=== PATIENT | female | born 1995 | race Two or more races ===

== ENCOUNTER 2021-01-29 03:58 | Inpatient (IN) | payer BC ==
[2021-01-29] VITALS (10 sets, daily range): BP systolic 81–112; BP diastolic 46–69
[~2021-01-29] VITALS: Ht 154.9 cm; Wt 54.0 kg
[2021-01-29] MEDS ORDERED: ONDANSETRON PF 4 MG/2 ML VIAL. IVP PRN (04:15)
[2021-01-29] MEDS: IV NORMAL SALINE 1000ML BAG 1,000 ML IV SCH ×4 (04:23→23:57)
[2021-01-29] MEDS: MORPHINE SULFATE 2 MG/ML VIAL. IV PRN ×2 (07:02→13:58)
--- NOTE | 2021-01-29 08:19 | PDOC2 ---
ALEJANDRINA DOMINGO DIGITAL STRATEGY DIRECTOR 01/29/21 0819: CONSULT Date of Consult Date of Consult DATE: 01/29/21 TIME: 08:15 Reason for Consult Reason for Consult: appendicitis Referring Physician Referring Physician: ER Identification/Chief Complaint Chief Complaint abdominal pain Source Source: Chart review, Patient History of Present Illness Reason for Visit: generalized abdominal pain started at 8pm, settled and seems worse at RLQ, aggravated by movement, nausea, and chills. Loose stool. no similar pain in past Past Medical History Past Medical History no medical hx Past Surgical History Past Surgical History: Other (abdominal wall lipoma removal ) Family History Family History: Other (noncontributory to current illness ) Social History No ALCOHOL: social Drugs: None Lives: with Family Current Medications Current Medications Current Medications Morphine Sulfate (Morphine Sulfate) 2 mg PRN Q2HR PRN IV PAIN Last administered on 01/29/21at 07:02; Start 01/29/21 at 04:15 Ondansetron HCl (Zofran) 4 mg PRN Q6HRS PRN IVP NAUSEA/VOMITING; Start 01/29/21 at 04:15 Sodium Chloride 1,000 ml @ 100 mls/hr Q10H IV Last administered on 01/29/21at 04:23; Start 01/29/21 at 04:15 Allergies Allergies: Coded Allergies: latex (Verified Allergy, Unknown, 01/29/21) ROS General: YES: Chills, Other (no fevers ) PSYCHOLOGICAL ROS: No: Anxiety, Depression Eyes: No Blurry vision, No Double vision HEENT: No: Heacaches, Sore Throat Hematological and Lymphatic: No: Bleeding Problems, Blood Clots Respiratory: No: Cough, Shortness of breath Cardiovascular: No Chest Pain, No Palpitations Gastrointestinal: Yes Other (see hpi) Genitourinary: No Dysuria, No Hematuria Musculoskeletal: No Joint Pain, No Muscle Pain Neurological: No Impaired Coord/balance, No Numbness/Tingling Skin: No Pruritus, No Rash Physical Exam General: Alert, Oriented X3, Cooperative HEENT: Atraumatic, PERRLA Lungs: Clear to auscultation, Normal air movement Heart: Regular rate, Normal S1, Normal S2 Abdomen: Soft, Other (moderate ttp RLQ, no gaurding ) Extremities: No clubbing, No cyanosis Skin: No rashes, No breakdown Neuro: Normal gait, Normal speech Psych/Mental Status: Mental status NL, Mood NL MUSCULOSKELETAL: No joint tenderness, No deformity Vitals VITALS Vital Signs Date Time Temp Pulse Resp B/P (MAP) Pulse Ox O2 Delivery O2 Flow Rate FiO2 01/29/21 07:02 20 100 Room Air 01/29/21 07:00 97.9 65 100/60 (73) 97.9 Labs Labs Laboratory Tests Test 01/29/21 04:45 SARS-CoV-2 Antigen (Rapid) Negative (NEGATIVE) Laboratory Tests Test 01/29/21 04:45 SARS-CoV-2 Antigen (Rapid) Negative (NEGATIVE) Images Images Ct from [facility] reviewed--acute appendicitis Assessment/Plan Assessment/Plan acute appendicitis plan lap MARINA Corley MD 01/29/21 0913: CONSULT Assessment/Plan Assessment/Plan Pt seen and examined by myself; 25 year old female who developed abdominal pain starting last night; pain was located on right side with associated nausea, vomiting, chills. She reported to the ER in [facility] and was transferred to [facility] with suspected appendicitis.; PMH/PSH/ROS/SH as above; exam: alert, oriented, comfortable, lungs clear, heart RR and R, abdomen soft, tender RLQ with palpation; Labs/xrays reviewed. A/P) Suspect appendicitis, rec to OR for laparoscopy. The details and risks of surgery were discussed with the patient. ALEJANDRINA DOMINGO APRN Jan 29, 2021 08:19 MARINA GODWIN MD Jan 29, 2021 09:13
[2021-01-29] MEDS ORDERED: HYDROmorphone 2 MG/ML VIAL IVP PRN (08:45)
[2021-01-29] MEDS ORDERED: fentaNYL PF VIAL 100 MCG/2 ML VIAL IVP PRN (08:45)
[2021-01-29] MEDS ORDERED: IV RINGERS,LACTATED 1000ML 1,000 ML IV SCH (08:45)
[2021-01-29] MEDS ORDERED: PROCHLORPERAZINE 10 MG/2 ML VIAL. IVP PRN (08:45)
[2021-01-29] MEDS ORDERED: MORPHINE SULFATE 2 MG/ML VIAL. IVP PRN (08:45)
[2021-01-29] MEDS ORDERED: LIDOCAINE 2% PF 5 ML VIAL. ONE (08:57)
[2021-01-29] MEDS ORDERED: ROCURONIUM 50 MG/5 ML VIAL. ONE (08:57)
[2021-01-29] MEDS ORDERED: PROPOFOL 10 MG/ML (20ML) VIAL. IV ONE (08:57)
[2021-01-29] MEDS ORDERED: fentaNYL PF VIAL 250 MCG/5 ML VIAL ONE (08:57)
[2021-01-29] MEDS ORDERED: SUCCINYLCHOLINE 200 MG/10 ML VIAL. ONE (08:57)
[2021-01-29] MEDS ORDERED: MIDAZOLAM HCL/PF 2 MG/2 ML VIAL. ONE (08:57)
--- NOTE | 2021-01-29 09:02 | PDOC1 ---
History and Physical Date of Admission Date of Admission DATE: 01/29/21 TIME: 09:02 Identification/Chief Complaint Chief Complaint rlq pain History of Present Illness History of Present Illness generalized abdominal pain started at 8pm, settled and seems worse at RLQ, ag gravated by movement, nausea, and chills. npo for surgery Past Medical History Cardiovascular: No pertinent hx Pulmonary: No pertinent hx Heme/Onc: No pertinent hx Hepatobiliary: No pertinent hx Psych: No pertinent hx Rheumatologic: No pertinent hx Infectious disease: No pertinent hx Renal/: No pertinent hx Past Surgical History Past Surgical History: Other (abdominal wall lipoma removal ) Family History Family History: High Cholestrol, Other (noncontributory to current illness ) Social History Smoke: No ALCOHOL: none Drugs: None Current Medications Current Medications Current Medications Morphine Sulfate (Morphine Sulfate) 2 mg PRN Q2HR PRN IV PAIN Last administered on 01/29/21at 07:02; Start 01/29/21 at 04:15 Ondansetron HCl (Zofran) 4 mg PRN Q6HRS PRN IVP NAUSEA/VOMITING; Start 01/29/21 at 04:15 Sodium Chloride 1,000 ml @ 100 mls/hr Q10H IV Last administered on 01/29/21at 04:23; Start 01/29/21 at 04:15 Fentanyl Citrate (Fentanyl 2ml Vial) 25 mcg PRN Q5MIN PRN IVP MILD PAIN 1-3; Start 01/29/21 at 08:45; Stop 01/30/21 at 08:44 Fentanyl Citrate (Fentanyl 2ml Vial) 50 mcg PRN Q5MIN PRN IVP MODERATE PAIN 4- 6; Start 01/29/21 at 08:45; Stop 01/30/21 at 08:44 Morphine Sulfate (Morphine Sulfate) 1 mg PRN Q10MIN PRN IVP SEVERE PAIN 7-10; Start 01/29/21 at 08:45; Stop 01/30/21 at 08:44 Ringer's Solution 1,000 ml @ 30 mls/hr Q24H IV ; Start 01/29/21 at 08:45; Stop 01/29/21 at 20:44 Hydromorphone HCl (Dilaudid) 0.5 mg PRN Q10MIN PRN IVP SEVERE PAIN 7-10, 2nd CHOICE; Start 01/29/21 at 08:45; Stop 01/30/21 at 08:44 Prochlorperazine Edisylate (Compazine) 5 mg PACU PRN PRN IVP NAUSEA, MRX1; Start 01/29/21 at 08:45; Stop 01/30/21 at 08:44 Lidocaine HCl (Lidocaine Pf 2% Vial) 5 ml STK-MED ONCE .ROUTE ; Start 01/29/21 at 08:57; Stop 01/29/21 at 08:57; Status DC Propofol (Diprivan) 200 mg STK-MED ONCE IV ; Start 01/29/21 at 08:57; Stop 01/29/21 at 08:57; Status DC Succinylcholine Chloride (Anectine) 200 mg STK-MED ONCE .ROUTE ; Start 01/29/21 at 08:57; Stop 01/29/21 at 08:57; Status DC Rocuronium Galloway (Zemuron) 50 mg STK-MED ONCE .ROUTE ; Start 01/29/21 at 08:57; Stop 01/29/21 at 08:57; Status DC Midazolam HCl (Versed) 2 mg STK-MED ONCE .ROUTE ; Start 01/29/21 at 08:57; Stop 01/29/21 at 08:57; Status DC Fentanyl Citrate (Fentanyl 5ml Vial) 250 mcg STK-MED ONCE .ROUTE ; Start 01/29/21 at 08:57; Stop 01/29/21 at 08:58; Status DC Allergies Allergies: Coded Allergies: latex (Verified Allergy, Unknown, 01/29/21) ROS General: No: Chills, Night Sweats, Fatigue, Malaise, Appetite, Other PSYCHOLOGICAL ROS: No: Anxiety, Behavioral Disorder, Concentration difficultie, Decreased libido, Depression, Disorientation, Hallucinations, Hostility, Irritablity, Memory difficulties, Mood Swings, Obsessive thoughts, Physical abuse, Sexual abuse, Sleep disturbances, Suicidal ideation, Other Eyes: No Blurry vision, No Decreased vision, No Double vision, No Dry eyes, No Excessive tearing, No Eye Pain, No Itchy Eyes, No Loss of vision, No Photophobia, No Scotomata, No Uses contacts, No Uses glasses, No Other HEENT: No: Heacaches, Visual Changes, Hearing change, Nasal congestion, Nasal discharge, Oral lesions, Sinus pain, Sore Throat, Epistaxis, Sneezing, Snoring, Tinnitus, Vertigo, Vocal changes, Other ALLERGY AND IMMUNOLOGY: No: Hives, Insect Bite Sensitivity, Itchy/Watery Eyes, Nasal Congestion, Post Nasal Drip, Seasonal Allergies, Other Hematological and Lymphatic: No: Bleeding Problems, Blood Clots, Blood Transfusions, Brusing, Night Sweats, Pallor, Swollen Lymph Nodes, Other ENDOCRINE: No: Breast Changes, Galactorrhea, Hair Pattern Changes, Hot Flashes, Malaise/lethargy, Mood Swings, Palpitations, Polydipsia/polyuria, Skin Changes, Temperature Intolerance, Unexpected Weight Changes, Other Breast: No New/Changing Breast Lumps, No Nipple changes, No Nipple discharge, No Other Respiratory: No: Cough, Hemoptysis, Orthopnea, Pleuritic Pain, Shortness of breath, SOB with excertion, Sputum Changes, Stridor, Tachypnea, Wheezing, Other Cardiovascular: No Chest Pain, No Palpitations, No Orthopnea, No Paroxysmal Noc. Dyspnea, No Edema, No Lt Headedness, No Other Gastrointestinal: Yes Abdominal Pain; No Nausea, No Vomiting, No Diarrhea, No Constipation, No Melena, No Hematochezia, No Other Genitourinary: No Dysuria, No Frequency, No Incontinence, No Hematuria, No Retention, No Discharge, No Urgency, No Pain, No Flank Pain, No Other, No , No , No , No , No , No , No Musculoskeletal: No Gait Disturbance, No Joint Pain, No Joint Stiffness, No J oint Swelling, No Muscle Pain, No Muscular Weakness, No Pain In:, No Swelling In:, No Other Neurological: No Behavorial Changes, No Bowel/Bladder ControlChng, No Confusion, No Dizziness, No Gait Disturbance, No Headaches, No Impaired Coord/balance, No Memory Loss, No Numbness/Tingling, No Seizures, No Speech Problems, No Tremors, No Visual Changes, No Weakness, No Other Skin: No Dry Skin, No Eczema, No Hair Changes, No Lumps, No Mole Changes, No Mottling, No Nail Changes, No Pruritus, No Rash, No Skin Lesion Changes, No Other, No Acne Physical Exam Physical Exam Physical Exam General: Alert, Oriented X3, Cooperative HEENT: Atraumatic, PERRLA Lungs: Clear to auscultation, Normal air movement Heart: Regular rate, Normal S1, Normal S2 Abdomen: Soft, Other (moderate ttp RLQ, no gaurding ) Extremities: No clubbing, No cyanosis Skin: No rashes, No breakdown Neuro: Normal gait, Normal speech Psych/Mental Status: Mental status NL, Mood NL MUSCULOSKELETAL: No joint tenderness, No deformity General: Alert, Oriented X3, Cooperative, mild distress HEENT: Atraumatic, PERRLA, EOMI, Mucous membr. moist/pink Lungs: Clear to auscultation Heart: RRR Breasts: Not examined Abdomen: Normal bowel sounds, Soft Rectal Exam: not examined Extremities: No cyanosis Neuro: Normal speech, Cranial nerves 3-12 NL Psych/Mental Status: Mental status NL, Mood NL Vitals Vitals Vital Signs Date Time Temp Pulse Resp B/P (MAP) Pulse Ox O2 Delivery O2 Flow Rate FiO2 01/29/21 08:41 98.6 83 16 101/63 100 Room Air 98.6 Labs Labs Laboratory Tests Test 01/29/21 04:45 SARS-CoV-2 Antigen (Rapid) Negative (NEGATIVE) Laboratory Tests Test 01/29/21 04:45 SARS-CoV-2 Antigen (Rapid) Negative (NEGATIVE) VTE Prophylaxis Ordered VTE Prophylaxis Devices: No VTE Pharmacological Prophylaxi: Yes Assessment/Plan Assessment/Plan Assessment/Plan Assessment/Plan acute appendicitis plan lap appy PLAN ADMIT NPO IV FLUIDS GEN SURG CONSULT dvt prophylaxis Justifications for Admission Other Justification LOUISE COX MD Jan 29, 2021 09:02
[2021-01-29] MEDS ORDERED: BUPIVACAINE-EPI 0.5%-1:200000 MPF 30 ML VIAL. ONE (10:19)
[2021-01-29] MEDS ORDERED: PHENYLEPHRINE in 0.9% NACL PF 1 MG/10 ML SYRINGE. IV ONE (10:43)
[2021-01-29] MEDS ORDERED: SEVOFLURANE 61 TO 120 MINUTES. IH ONE (10:46)
[2021-01-29] MEDS ORDERED: ONDANSETRON PF 4 MG/2 ML VIAL. ONE (10:48)
[2021-01-29] MEDS ORDERED: KETOROLAC 30 MG/ML VIAL. ONE (10:48)
[2021-01-29] MEDS ORDERED: DEXAMETHASONE SOD PHOS 4 MG/ML VIAL ONE (10:48)
[2021-01-29] MEDS ORDERED: GLYCOPYRROLATE 1 MG/5 ML VIAL. ONE (10:53)
[2021-01-29] MEDS ORDERED: NEOSTIGMINE METHYLSULFATE 5 MG/5 ML SYRINGE. ONE (10:53)
[2021-01-29] MEDS ORDERED: fentaNYL PF VIAL 100 MCG/2 ML VIAL ONE (11:45)
[2021-01-29] MEDS ORDERED: PROCHLORPERAZINE 10 MG/2 ML VIAL. ONE (11:45)
--- NOTE | 2021-01-29 11:50 | PDOC4 ---
Operative Note Operative Note Preoperative Diagnosis: Acute Appendicitis Postoperative Diagnosis: Same Procedure: Laparoscopic appendectomy Surgeon: Tito Anesthesia: Gen. EBL: 10 mL Specimen: Appendix to pathology Drains: None Complications: None Indication: The patient is a 25-year-old female who reported to the emergency department with abdominal pain. The evaluation is consistent with acute appendicitis. The patient was offered surgical treatment with a laparoscopic appendectomy. The risks of surgery were discussed which include bleeding, infection, visceral injury, pain, anesthetic risk, potential need for additional surgery or procedure. The patient understands and would like to proceed. Description: The patient was taken to the operating room and placed supine on the operating table. Gen. anesthesia was performed. The abdomen was prepped with ChloraPrep and draped in a standard surgical manner. A supraumbilical incision was made through which a veress needle was inserted and a pneumoperitoneum was created. A visualized 5 mm trocar was inserted and the laparoscope was intr oduced. In the left lower quadrant a 5 mm trocar was inserted. In the suprapubic region a 12 mm trocar was inserted. There was an adhesion to a loop of small bowel which was taken down with scissors. There was a slight possible serosal disruption on a loop of small bowel where the adhesion was attached. This was oversewn with 3-0 Vicryl. The appendix was identified and appeared enlarged and mildly thickened possibly consistent with early acute appendicitis. There was no clear evidence of perforation or periappendiceal abscess. The mesoappendix was bluntly from the appendix. The mesoappendix was controlled using several clips and it was divided. The appendix was then amputated off the cecum using an Endo BRITTANY 45 stapling device. The appendix was then placed in an endoscopic bag and extracted at the suprapubic incision site. The fascia there was closed with 0 Vicryl and infiltrated with half percent Marcaine with epinephrine. The RLQ was visualized and the staple line appeared well intact and hemostasis was good. No other abnormalities were identified grossly. The remaining ports were removed and the pneumoperitoneum was relieved. The skin at all incision sites was closed with 4-0 Monocryl. Steri-Strips and dressings were applied. The patient tolerated the procedure well and was sent to the recovery room in stable condition. At the end of the case all counts were correct. MARINA GODWIN MD Jan 29, 2021 11:50
[2021-01-29] MEDS ORDERED: oxyCODONE/APAP 5/325 1 TAB TABLET PO PRN (12:00)
[2021-01-29] MEDS: fentaNYL PF VIAL 100 MCG/2 ML VIAL IVP PRN ×2 (12:05→13:01)
[2021-01-29] MEDS ORDERED: DOCUSATE SODIUM 100 MG CAPSULE. PO PRN (13:45)
[2021-01-29] MEDS ORDERED: 0.9 % SODIUM CHLORIDE 10 ML DISP.SYRIN. IV PRN (13:45)
[2021-01-29] MEDS ORDERED: ALBUTEROL SULFATE 2.5 MG/3 ML NEBU. NEB PRN (13:45)
[2021-01-29] MEDS ORDERED: SODIUM PHOSPHATES 19/7GM 133 ML ENEMA. PR PRN (13:45)
[2021-01-29] MEDS ORDERED: guaiFENesin ORAL 200 MG/10 ML LIQUID. PO PRN (13:45)
[2021-01-29] MEDS ORDERED: ACETAMINOPHEN 325 MG TABLET. PO PRN (13:45)
[2021-01-29] MEDS ORDERED: ONDANSETRON PF 4 MG/2 ML VIAL. IV PRN (13:45)
[2021-01-29] MEDS ORDERED: ZOLPIDEM 5 MG TABLET. PO PRN (13:45)
[2021-01-29 14:32] LABS: CALCIUM 7.2 mg/dL (8.5-10.1); CREATININE 0.5 mg/dL (0.6-1.0); GFR 152.9; POTASSIUM 3.6 mmol/L (3.5-5.1)
[2021-01-29] MEDS: oxyCODONE/APAP 5/325 1 TAB TABLET PO PRN ×2 (19:46→23:54)
[2021-01-29] MEDS ORDERED: ENOXAPARIN 40 MG/0.4 ML SYRINGE. SQ SCH (21:00)
[2021-01-30] VITALS: BP 99/61
[2021-01-30] MEDS: IV NORMAL SALINE 1000ML BAG 1,000 ML IV SCH ×3 (02:56→10:15)
[2021-01-30 03:00] VITALS: BP 95/54
[2021-01-30 06:10] LABS: BASO % 0 % (0-3); EOS % 0 % (0-3); HEMATOCRIT 36.6 % (36.0-47.0); LYMPH # 1.5 x10^3/uL (1.0-4.8); LYMPH % 23 % (24-48); MEAN CORPUSCULAR HEMOGLOBIN 27 pg (25-35); MEAN CORPUSCULAR HGB CONC 33 g/dL (31-37); MEAN CORPUSCULAR VOLUME 82 fL (79-100); MONO # 0.4 x10^3/uL (0.0-1.1); MONO % 7 % (0-9); NEUT # 4.7 x10^3/uL (1.8-7.7); NEUT % 71 % (31-73); PLATELET COUNT 211 x10^3/uL (140-400); RED BLOOD COUNT 4.46 x10^6/uL (3.50-5.40); RED CELL DISTRIBUTION WIDTH 14.3 % (11.5-14.5); WHITE BLOOD COUNT 6.7 x10^3/uL (4.0-11.0)
[2021-01-30 07:00] VITALS: BP 102/63
[2021-01-30] MEDS: oxyCODONE/APAP 5/325 1 TAB TABLET PO PRN (07:04)
--- NOTE | 2021-01-30 08:57 | PDOC ---
PROGRESS NOTES Date of Service: DATE: 01/30/21 TIME: 08:57 Chief Complaint Chief Complaint Assessment/Plan Assessment/Plan acute appendicitis plan lap appy CHRISTOS WE[facility] PLAN ADMIT ADAT IV FLUIDS GEN SURG CONSULT dvt prophylaxis - IMPROVED, ON CLEARS D/W RN Justifications for Admission Justifications for Admission Other Justification History of Present Illness History of Present Illness History of Present Illness History of Present Illness generalized abdominal pain started at 8pm, settled and seems worse at RLQ, aggravated by movement, nausea, and chills. npo for surgery Past Medical History Cardiovascular: No pertinent hx Pulmonary: No pertinent hx Heme/Onc: No pertinent hx Hepatobiliary: No pertinent hx Psych: No pertinent hx Rheumatologic: No pertinent hx Infectious disease: No pertinent hx Renal/: No pertinent hx Past Surgical History Past Surgical History: Other (abdominal wall lipoma removal ) Family History Family History: High Cholestrol, Other (noncontributory to current illness ) Social History Smoke: No ALCOHOL: none Drugs: None Current Medications Current Medications Current Medications Morphine Sulfate (Morphine Sulfate) 2 mg PRN Q2HR PRN IV PAIN Last administered on 01/29/21at 07:02; Start 01/29/21 at 04:15 Ondansetron HCl (Zofran) 4 mg PRN Q6HRS PRN IVP NAUSEA/VOMITING; Start 01/29/21 at 04:15 Sodium Chloride 1,000 ml @ 100 mls/hr Q10H IV Last administered on 01/29/21at 04:23; Start 01/29/21 at 04:15 Fentanyl Citrate (Fentanyl 2ml Vial) 25 mcg PRN Q5MIN PRN IVP MILD PAIN 1-3; Start 01/29/21 at 08:45; Stop 01/30/21 at 08:44 Fentanyl Citrate (Fentanyl 2ml Vial) 50 mcg PRN Q5MIN PRN IVP MODERATE PAIN 4- 6; Start 01/29/21 at 08:45; Stop 01/30/21 at 08:44 Morphine Sulfate (Morphine Sulfate) 1 mg PRN Q10MIN PRN IVP SEVERE PAIN 7-10; Start 01/29/21 at 08:45; Stop 01/30/21 at 08:44 Ringer's Solution 1,000 ml @ 30 mls/hr Q24H IV ; Start 01/29/21 at 08:45; Stop 01/29/21 at 20:44 Hydromorphone HCl (Dilaudid) 0.5 mg PRN Q10MIN PRN IVP SEVERE PAIN 7-10, 2nd CHOICE; Start 01/29/21 at 08:45; Stop 01/30/21 at 08:44 Prochlorperazine Edisylate (Compazine) 5 mg PACU PRN PRN IVP NAUSEA, MRX1; Start 01/29/21 at 08:45; Stop 01/30/21 at 08:44 Lidocaine HCl (Lidocaine Pf 2% Vial) 5 ml STK-MED ONCE .ROUTE ; Start 01/29/21 at 08:57; Stop 01/29/21 at 08:57; Status DC Propofol (Diprivan) 200 mg STK-MED ONCE IV ; Start 01/29/21 at 08:57; Stop 01/29/21 at 08:57; Status DC Succinylcholine Chloride (Anectine) 200 mg STK-MED ONCE .ROUTE ; Start 01/29/21 at 08:57; Stop 01/29/21 at 08:57; Status DC Rocuronium [place] (Zemuron) 50 mg STK-MED ONCE .ROUTE ; Start 01/29/21 at 08:57; Stop 01/29/21 at 08:57; Status DC Midazolam HCl (Versed) 2 mg STK-MED ONCE .ROUTE ; Start 01/29/21 at 08:57; Stop 01/29/21 at 08:57; Status DC Fentanyl Citrate (Fentanyl 5ml Vial) 250 mcg STK-MED ONCE .ROUTE ; Start 01/29/21 at 08:57; Stop 01/29/21 at 08:58; Status DC Allergies Allergies: Coded Allergies: latex (Verified Allergy, Unknown, 01/29/21) ROS General: No: Chills, Night Sweats, Fatigue, Malaise, Appetite, Other PSYCHOLOGICAL ROS: No: Anxiety, Behavioral Disorder, Concentration difficultie, Decreased libido, Depression, Disorientation, Hallucinations, Hostility, Irritablity, Memory difficulties, Mood Swings, Obsessive thoughts, Physical abuse, Sexual abuse, Sleep disturbances, Suicidal ideation, Other Eyes: No Blurry vision, No Decreased vision, No Double vision, No Dry eyes, No Excessive tearing, No Eye Pain, No Itchy Eyes, No Loss of vision, No Photopho daniel, No Scotomata, No Uses contacts, No Uses glasses, No Other HEENT: No: Heacaches, Visual Changes, Hearing change, Nasal congestion, Nasal discharge, Oral lesions, Sinus pain, Sore Throat, Epistaxis, Sneezing, Snoring, Tinnitus, Vertigo, Vocal changes, Other ALLERGY AND IMMUNOLOGY: No: Hives, Insect Bite Sensitivity, Itchy/Watery Eyes, Nasal Congestion, Post Nasal Drip, Seasonal Allergies, Other Hematological and Lymphatic: No: Bleeding Problems, Blood Clots, Blood Transfusions, Brusing, Night Sweats, Pallor, Swollen Lymph Nodes, Other ENDOCRINE: No: Breast Changes, Galactorrhea, Hair Pattern Changes, Hot Flashes, Malaise/lethargy, Mood Swings, Palpitations, Polydipsia/polyuria, Skin Changes, Temperature Intolerance, Unexpected Weight Changes, Other Breast: No New/Changing Breast Lumps, No Nipple changes, No Nipple discharge, No Other Respiratory: No: Cough, Hemoptysis, Orthopnea, Pleuritic Pain, Shortness of breath, SOB with excertion, Sputum Changes, Stridor, Tachypnea, Wheezing, Other Cardiovascular: No Chest Pain, No Palpitations, No Orthopnea, No Paroxysmal Noc. Dyspnea, No Edema, No Lt Headedness, No Other Gastrointestinal: Yes Abdominal Pain; No Nausea, No Vomiting, No Diarrhea, No Constipation, No Melena, No Hematochezia, No Other Genitourinary: No Dysuria, No Frequency, No Incontinence, No Hematuria, No Retention, No Discharge, No Urgency, No Pain, No Flank Pain, No Other, No , No , No , No , No , No , No Musculoskeletal: No Gait Disturbance, No Joint Pain, No Joint Stiffness, No Joint Swelling, No Muscle Pain, No Muscular Weakness, No Pain In:, No Swelling In:, No Other Neurological: No Behavorial Changes, No Bowel/Bladder ControlChng, No Confusion, No Dizziness, No Gait Disturbance, No Headaches, No Impaired Coord/balance, No Memory Loss, No Numbness/Tingling, No Seizures, No Speech Problems, No Tremors, No Visual Changes, No Weakness, No Other Skin: No Dry Skin, No Eczema, No Hair Changes, No Lumps, No Mole Changes, No Mottling, No Nail Changes, No Pruritus, No Rash, No Skin Lesion Changes, No Other, No Acne Vitals Vitals Vital Signs Date Time Temp Pulse Resp B/P (MAP) Pulse Ox O2 Delivery O2 Flow Rate FiO2 01/30/21 08:06 Room Air 01/30/21 07:04 20 100 10.0 01/30/21 07:00 97.7 66 102/63 (76) 97.7 Physical Exam General: Alert, Oriented X3, Cooperative, No acute distress Heart: Regular rate, Normal S1, Normal S2 Lungs: Clear Abdomen: Normal bowel sounds, Soft Extremities: No clubbing, No cyanosis Skin: No rashes, No breakdown Labs LABS Laboratory Tests Test 01/29/21 14:00 01/30/21 05:20 Sodium Level 139 mmol/L (136-145) Potassium Level 3.6 mmol/L (3.5-5.1) Chloride Level 107 mmol/L (98-107) Carbon Dioxide Level 23 mmol/L (21-32) Anion Gap 9 (6-14) Blood Urea Nitrogen 5 mg/dL (7-20) Creatinine 0.5 mg/dL (0.6-1.0) Estimated GFR (Cockcroft-Gault) 152.9 Glucose Level 94 mg/dL (70-99) Calcium Level 7.2 mg/dL (8.5-10.1) White Blood Count 6.7 x10^3/uL (4.0-11.0) Red Blood Count 4.46 x10^6/uL (3.50-5.40) Hemoglobin 12.0 g/dL (12.0-15.5) Hematocrit 36.6 % (36.0-47.0) Mean Corpuscular Volume 82 fL (79-100) Mean Corpuscular Hemoglobin 27 pg (25-35) Mean Corpuscular Hemoglobin Concent 33 g/dL (31-37) Red Cell Distribution Width 14.3 % (11.5-14.5) Platelet Count 211 x10^3/uL (140-400) Neutrophils (%) (Auto) 71 % (31-73) Lymphocytes (%) (Auto) 23 % (24-48) Monocytes (%) (Auto) 7 % (0-9) Eosinophils (%) (Auto) 0 % (0-3) Basophils (%) (Auto) 0 % (0-3) Neutrophils # (Auto) 4.7 x10^3/uL (1.8-7.7) Lymphocytes # (Auto) 1.5 x10^3/uL (1.0-4.8) Monocytes # (Auto) 0.4 x10^3/uL (0.0-1.1) Eosinophils # (Auto) 0.0 x10^3/uL (0.0-0.7) Basophils # (Auto) 0.0 x10^3/uL (0.0-0.2) Comment Review of Relevant I have reviewed the following items juliocesar (where applicable) has been applied. Labs Laboratory Tests Test 01/29/21 04:45 01/29/21 14:00 01/30/21 05:20 Coronavirus (PCR) Not detected (Not Detected) SARS-CoV-2 Antigen (Rapid) Negative (NEGATIVE) Sodium Level 139 mmol/L (136-145) Potassium Level 3.6 mmol/L (3.5-5.1) Chloride Level 107 mmol/L (98-107) Carbon Dioxide Level 23 mmol/L (21-32) Anion Gap 9 (6-14) Blood Urea Nitrogen 5 mg/dL (7-20) Creatinine 0.5 mg/dL (0.6-1.0) Estimated GFR (Cockcroft-Gault) 152.9 Glucose Level 94 mg/dL (70-99) Calcium Level 7.2 mg/dL (8.5-10.1) White Blood Count 6.7 x10^3/uL (4.0-11.0) Red Blood Count 4.46 x10^6/uL (3.50-5.40) Hemoglobin 12.0 g/dL (12.0-15.5) Hematocrit 36.6 % (36.0-47.0) Mean Corpuscular Volume 82 fL (79-100) Mean Corpuscular Hemoglobin 27 pg (25-35) Mean Corpuscular Hemoglobin Concent 33 g/dL (31-37) Red Cell Distribution Width 14.3 % (11.5-14.5) Platelet Count 211 x10^3/uL (140-400) Neutrophils (%) (Auto) 71 % (31-73) Lymphocytes (%) (Auto) 23 % (24-48) Monocytes (%) (Auto) 7 % (0-9) Eosinophils (%) (Auto) 0 % (0-3) Basophils (%) (Auto) 0 % (0-3) Neutrophils # (Auto) 4.7 x10^3/uL (1.8-7.7) Lymphocytes # (Auto) 1.5 x10^3/uL (1.0-4.8) Monocytes # (Auto) 0.4 x10^3/uL (0.0-1.1) Eosinophils # (Auto) 0.0 x10^3/uL (0.0-0.7) Basophils # (Auto) 0.0 x10^3/uL (0.0-0.2) Laboratory Tests Test 01/29/21 14:00 01/30/21 05:20 Sodium Level 139 mmol/L (136-145) Potassium Level 3.6 mmol/L (3.5-5.1) Chloride Level 107 mmol/L (98-107) Carbon Dioxide Level 23 mmol/L (21-32) Anion Gap 9 (6-14) Blood Urea Nitrogen 5 mg/dL (7-20) Creatinine 0.5 mg/dL (0.6-1.0) Estimated GFR (Cockcroft-Gault) 152.9 Glucose Level 94 mg/dL (70-99) Calcium Level 7.2 mg/dL (8.5-10.1) White Blood Count 6.7 x10^3/uL (4.0-11.0) Red Blood Count 4.46 x10^6/uL (3.50-5.40) Hemoglobin 12.0 g/dL (12.0-15.5) Hematocrit 36.6 % (36.0-47.0) Mean Corpuscular Volume 82 fL (79-100) Mean Corpuscular Hemoglobin 27 pg (25-35) Mean Corpuscular Hemoglobin Concent 33 g/dL (31-37) Red Cell Distribution Width 14.3 % (11.5-14.5) Platelet Count 211 x10^3/uL (140-400) Neutrophils (%) (Auto) 71 % (31-73) Lymphocytes (%) (Auto) 23 % (24-48) Monocytes (%) (Auto) 7 % (0-9) Eosinophils (%) (Auto) 0 % (0-3) Basophils (%) (Auto) 0 % (0-3) Neutrophils # (Auto) 4.7 x10^3/uL (1.8-7.7) Lymphocytes # (Auto) 1.5 x10^3/uL (1.0-4.8) Monocytes # (Auto) 0.4 x10^3/uL (0.0-1.1) Eosinophils # (Auto) 0.0 x10^3/uL (0.0-0.7) Basophils # (Auto) 0.0 x10^3/uL (0.0-0.2) Medications Current Medications Morphine Sulfate (Morphine Sulfate) 2 mg PRN Q2HR PRN IV PAIN Last administered on 01/29/21at 13:58; Start 01/29/21 at 04:15 Ondansetron HCl (Zofran) 4 mg PRN Q6HRS PRN IVP NAUSEA/VOMITING; Start 01/29/21 at 04:15; Stop 01/29/21 at 14:25; Status DC Sodium Chloride 1,000 ml @ 100 mls/hr Q10H IV Last administered on 01/30/21at 02:56; Start 01/29/21 at 04:15 Fentanyl Citrate (Fentanyl 2ml Vial) 25 mcg PRN Q5MIN PRN IVP MILD PAIN 1-3; Start 01/29/21 at 08:45; Stop 01/30/21 at 08:44; Status DC Fentanyl Citrate (Fentanyl 2ml Vial) 50 mcg PRN Q5MIN PRN IVP MODERATE PAIN 4-6 Last administered on 01/29/21at 13:01; Start 01/29/21 at 08:45; Stop 01/30/21 at 08:44; Status DC Morphine Sulfate (Morphine Sulfate) 1 mg PRN Q10MIN PRN IVP SEVERE PAIN 7-10; Start 01/29/21 at 08:45; Stop 01/30/21 at 08:44; Status DC Ringer's Solution 1,000 ml @ 30 mls/hr Q24H IV ; Start 01/29/21 at 08:45; Stop 01/29/21 at 20:44; Status DC Hydromorphone HCl (Dilaudid) 0.5 mg PRN Q10MIN PRN IVP SEVERE PAIN 7-10, 2nd CHOICE; Start 01/29/21 at 08:45; Stop 01/30/21 at 08:44; Status DC Prochlorperazine Edisylate (Compazine) 5 mg PACU PRN PRN IVP NAUSEA, MRX1 Last administered on 01/29/21at 12:04; Start 01/29/21 at 08:45; Stop 01/30/21 at 08:44; Status DC Lidocaine HCl (Lidocaine Pf 2% Vial) 5 ml STK-MED ONCE .ROUTE ; Start 01/29/21 at 08:57; Stop 01/29/21 at 08:57; Status DC Propofol (Diprivan) 200 mg STK-MED ONCE IV ; Start 01/29/21 at 08:57; Stop 01/29/21 at 08:57; Status DC Succinylcholine Chloride (Anectine) 200 mg STK-MED ONCE .ROUTE ; Start 01/29/21 at 08:57; Stop 01/29/21 at 08:57; Status DC Rocuronium [place] (Zemuron) 50 mg STK-MED ONCE .ROUTE ; Start 01/29/21 at 08:57; Stop 01/29/21 at 08:57; Status DC Midazolam HCl (Versed) 2 mg STK-MED ONCE .ROUTE ; Start 01/29/21 at 08:57; Stop 01/29/21 at 08:57; Status DC Fentanyl Citrate (Fentanyl 5ml Vial) 250 mcg STK-MED ONCE .ROUTE ; Start 01/29/21 at 08:57; Stop 01/29/21 at 08:58; Status DC Bupivacaine HCl/ Epinephrine Bitart (Sensorcain-Epi 0.5%-1:300867 Mpf) 30 ml STK-MED ONCE .ROUTE Last administered on 01/29/21at 10:50; Start 01/29/21 at 10:19; Stop 01/29/21 at 10:20; Status DC Phenylephrine HCl (PHENYLEPHRINE in 0.9% NACL PF) 1 mg STK-MED ONCE IV ; Start 01/29/21 at 10:43; Stop 01/29/21 at 10:43; Status DC Sevoflurane (Ultane) 60 ml STK-MED ONCE IH ; Start 01/29/21 at 10:46; Stop 01/29/21 at 10:46; Status DC Ketorolac Tromethamine (Toradol 30mg Vial) 30 mg STK-MED ONCE .ROUTE ; Start 01/29/21 at 10:48; Stop 01/29/21 at 10:48; Status DC Ondansetron HCl (Zofran) 4 mg STK-MED ONCE .ROUTE ; Start 01/29/21 at 10:48; Stop 01/29/21 at 10:48; Status DC Dexamethasone Sodium Phosphate (Decadron) 4 mg STK-MED ONCE .ROUTE ; Start 01/29/21 at 10:48; Stop 01/29/21 at 10:48; Status DC Neostigmine [place] (Neostigmine Methylsulfate) 5 mg STK-MED ONCE .ROUTE ; Start 01/29/21 at 10:53; Stop 01/29/21 at 10:53; Status DC Glycopyrrolate (Robinul) 1 mg STK-MED ONCE .ROUTE ; Start 01/29/21 at 10:53; Stop 01/29/21 at 10:54; Status DC Fentanyl Citrate (Fentanyl 2ml Vial) 100 mcg STK-MED ONCE .ROUTE ; Start 01/29/21 at 11:45; Stop 01/29/21 at 11:45; Status DC Prochlorperazine Edisylate (Compazine) 10 mg STK-MED ONCE .ROUTE ; Start 01/29/21 at 11:45; Stop 01/29/21 at 11:45; Status DC Oxycodone/ Acetaminophen (Percocet 5/325) 1 tab PRN Q4HRS PRN PO MODERATE PAIN Last administered on 01/30/21at 07:04; Start 01/29/21 at 12:00 Oxycodone/ Acetaminophen (Percocet 5/325) 2 tab PRN Q4HRS PRN PO SEVERE PAIN; Start 01/29/21 at 12:00 Sodium Chloride (Normal Saline Flush) 3 ml QSHIFT PRN IV AFTER MEDS AND BLOOD DRAWS; Start 01/29/21 at 13:45 Sodium Chloride 1,000 ml @ 100 mls/hr Q10H IV Last administered on 01/29/21at 23:57; Start 01/29/21 at 13:45 Ondansetron HCl (Zofran) 4 mg PRN Q4HRS PRN IV NAUSEA/VOMITING Last administered on 01/29/21at 18:45; Start 01/29/21 at 13:45 Zolpidem Tartrate (Ambien) 5 mg PRN QHS PRN PO INSOMNIA; Start 01/29/21 at 13:45 Acetaminophen (Tylenol) 650 mg PRN Q4HRS PRN PO TEMP OVER 100.4F OR MILD PAIN; Start 01/29/21 at 13:45 Sodium Monofluorophosphate (Fleet Adult) 133 ml PRN DAILY PRN [place] CONSTIPATION; Start 01/29/21 at 13:45 Docusate Sodium (Colace) 100 mg PRN BID PRN PO HARD STOOLS; Start 01/29/21 at 13:45 Albuterol Sulfate (Ventolin Neb Soln) 2.5 mg PRN Q4HRS PRN NEB SHORTNESS OF BREATH; Start 01/29/21 at 13:45 Guaifenesin (Robitussin) 200 mg PRN Q4HRS PRN PO COUGH; Start 01/29/21 at 13:45 Enoxaparin Sodium (Lovenox 40mg Syringe) 40 mg Q24H SQ ; Start 01/29/21 at 21:00; Stop 01/30/21 at 00:45; Status DC Enoxaparin Sodium (Lovenox 40mg Syringe) 40 mg Q24H SQ Last administered on 01/30/21at 08:04; Start 01/30/21 at 09:00 Vitals/I & O Vital Sign - Last 24 Hours 01/29/21 01/29/21 01/29/21 01/29/21 11:00 11:46 11:46 12:01 Temp 97.1 97.1 97.1 97.1 Pulse 86 84 Resp 15 15 B/P (MAP) () 86/36 92/44 Pulse Ox 100 100 O2 Delivery Room Air Room Air Room Air O2 Flow Rate 10 01/29/21 01/29/21 01/29/21 01/29/21 12:05 12:16 12:31 12:46 Temp 97.1 97.1 97.1 97.1 97.1 97.1 Pulse 88 91 88 Resp 15 15 15 15 B/P (MAP) 98/50 96/49 94/45 Pulse Ox 100 99 99 99 O2 Delivery Room Air Room Air Room Air Room Air O2 Flow Rate 10.0 01/29/21 01/29/21 01/29/21 01/29/21 13:01 13:15 13:30 13:58 Temp 98.7 98.7 Pulse 97 96 Resp 15 16 16 B/P (MAP) 104/55 (71) 112/57 (75) Pulse Ox 100 95 96 O2 Delivery Room Air Room Air Room Air Room Air O2 Flow Rate 10.0 01/29/21 01/29/21 01/29/21 01/29/21 14:00 14:28 14:30 14:55 Pulse 96 101 107 Resp 16 16 17 18 B/P (MAP) 112/69 (83) 92/56 (68) 106/67 (80) Pulse Ox 98 97 95 O2 Delivery Room Air Room Air Room Air 01/29/21 01/29/21 01/29/21 01/29/21 15:50 19:00 19:46 20:00 Temp 98.2 98.2 Pulse 61 95 Resp 16 20 B/P (MAP) 81/46 (58) 104/55 (71) Pulse Ox 100 95 O2 Delivery Room Air Room Air Room Air 01/29/21 01/29/21 01/30/21 01/30/21 20:46 23:54 00:00 00:54 Temp 97.7 97.7 Pulse 91 Resp 20 20 16 20 B/P (MAP) 99/61 (74) Pulse Ox 100 95 100 100 O2 Delivery Room Air Room Air Room Air Room Air 01/30/21 01/30/21 01/30/21 01/30/21 03:00 07:00 07:04 08:06 Temp 97.8 97.7 97.8 97.7 Pulse 89 66 Resp 16 18 20 B/P (MAP) 95/54 (68) 102/63 (76) Pulse Ox 100 94 100 O2 Delivery Room Air Room Air Room Air Room Air O2 Flow Rate 10.0 Intake and Output 01/29/21 01/29/21 01/30/21 15:00 23:00 07:00 Intake Total 1000 ml 1200 ml Output Total 410 ml 500 ml 300 ml Balance 590 ml 700 ml -300 ml Justicifation of Admission Dx: Justifications for Admission: Justification of Admission Dx: Yes Comments: ACUTE APPENDICITIS LOUISE COX MD Jan 30, 2021 08:57
[2021-01-30] MEDS ORDERED: ENOXAPARIN 40 MG/0.4 ML SYRINGE. SQ SCH (09:00)
--- NOTE | 2021-01-30 09:39 | PDOC ---
SURGICAL PROGRESS NOTE DATE: 01/30/21 TIME: 09:38 Subjective overall feels much better than preop no nausea urinating Vital Signs Vital Signs Date Time Temp Pulse Resp B/P (MAP) Pulse Ox O2 Delivery O2 Flow Rate FiO2 01/30/21 08:06 Room Air 01/30/21 07:04 20 100 10.0 01/30/21 07:00 97.7 66 102/63 (76) 97.7 I&O Intake and Output 01/30/21 07:00 Intake Total 2200 ml Output Total 1210 ml Balance 990 ml IV Total 1000 ml Other 1200 ml Output Urine Total 1200 ml Estimated Blood Loss 10 ml # Voids 1 General: Alert, Oriented X3, Cooperative Abdomen: Soft, Other (lap dressings dry) Labs Laboratory Tests Test 01/29/21 04:45 01/29/21 14:00 01/30/21 05:20 Coronavirus (PCR) Not detected (Not Detected) SARS-CoV-2 Antigen (Rapid) Negative (NEGATIVE) Sodium Level 139 mmol/L (136-145) Potassium Level 3.6 mmol/L (3.5-5.1) Chloride Level 107 mmol/L (98-107) Carbon Dioxide Level 23 mmol/L (21-32) Anion Gap 9 (6-14) Blood Urea Nitrogen 5 mg/dL (7-20) Creatinine 0.5 mg/dL (0.6-1.0) Estimated GFR (Cockcroft-Gault) 152.9 Glucose Level 94 mg/dL (70-99) Calcium Level 7.2 mg/dL (8.5-10.1) White Blood Count 6.7 x10^3/uL (4.0-11.0) Red Blood Count 4.46 x10^6/uL (3.50-5.40) Hemoglobin 12.0 g/dL (12.0-15.5) Hematocrit 36.6 % (36.0-47.0) Mean Corpuscular Volume 82 fL (79-100) Mean Corpuscular Hemoglobin 27 pg (25-35) Mean Corpuscular Hemoglobin Concent 33 g/dL (31-37) Red Cell Distribution Width 14.3 % (11.5-14.5) Platelet Count 211 x10^3/uL (140-400) Neutrophils (%) (Auto) 71 % (31-73) Lymphocytes (%) (Auto) 23 % (24-48) Monocytes (%) (Auto) 7 % (0-9) Eosinophils (%) (Auto) 0 % (0-3) Basophils (%) (Auto) 0 % (0-3) Neutrophils # (Auto) 4.7 x10^3/uL (1.8-7.7) Lymphocytes # (Auto) 1.5 x10^3/uL (1.0-4.8) Monocytes # (Auto) 0.4 x10^3/uL (0.0-1.1) Eosinophils # (Auto) 0.0 x10^3/uL (0.0-0.7) Basophils # (Auto) 0.0 x10^3/uL (0.0-0.2) Laboratory Tests Test 01/29/21 14:00 01/30/21 05:20 Sodium Level 139 mmol/L (136-145) Potassium Level 3.6 mmol/L (3.5-5.1) Chloride Level 107 mmol/L (98-107) Carbon Dioxide Level 23 mmol/L (21-32) Anion Gap 9 (6-14) Blood Urea Nitrogen 5 mg/dL (7-20) Creatinine 0.5 mg/dL (0.6-1.0) Estimated GFR (Cockcroft-Gault) 152.9 Glucose Level 94 mg/dL (70-99) Calcium Level 7.2 mg/dL (8.5-10.1) White Blood Count 6.7 x10^3/uL (4.0-11.0) Red Blood Count 4.46 x10^6/uL (3.50-5.40) Hemoglobin 12.0 g/dL (12.0-15.5) Hematocrit 36.6 % (36.0-47.0) Mean Corpuscular Volume 82 fL (79-100) Mean Corpuscular Hemoglobin 27 pg (25-35) Mean Corpuscular Hemoglobin Concent 33 g/dL (31-37) Red Cell Distribution Width 14.3 % (11.5-14.5) Platelet Count 211 x10^3/uL (140-400) Neutrophils (%) (Auto) 71 % (31-73) Lymphocytes (%) (Auto) 23 % (24-48) Monocytes (%) (Auto) 7 % (0-9) Eosinophils (%) (Auto) 0 % (0-3) Basophils (%) (Auto) 0 % (0-3) Neutrophils # (Auto) 4.7 x10^3/uL (1.8-7.7) Lymphocytes # (Auto) 1.5 x10^3/uL (1.0-4.8) Monocytes # (Auto) 0.4 x10^3/uL (0.0-1.1) Eosinophils # (Auto) 0.0 x10^3/uL (0.0-0.7) Basophils # (Auto) 0.0 x10^3/uL (0.0-0.2) Problem List s/p appy diet as tolerated, can dc home Justicifation of Admission Dx: Justifications for Admission: Justification of Admission Dx: Yes Comments: appendicitis ALEJANDRINA DOMINGO APRN Jan 30, 2021 09:39
[2021-01-30] MEDS ORDERED: DOCU-153 PO (09:41)
[2021-01-30] MEDS ORDERED: OXYC1TAB15 PO (09:41)
[2021-01-30 11:00] VITALS: BP 106/60
--- NOTE | 2021-01-30 12:07 | PDOC3 ---
Discharge Summary Date of Admission: Jan 29, 2021 Date of Discharge: Jan 30, 2021 Follow-Up: 3-5 days Admitting Diagnosis comment: DISCHARGE DX Assessment/Plan acute appendicitis plan lap appy CHRISTOS WELL PLAN ADMIT ADAT IV FLUIDS GEN SURG CONSULT dvt prophylaxis 3-24 IMPROVED, ON CLEARS D/W RN D/C PLANNING 35 MIN Operative Note Operative Note Operative Note Preoperative Diagnosis: Acute Appendicitis Postoperative Diagnosis: Same Procedure: Laparoscopic appendectomy Surgeon: Tito Anesthesia: Gen. EBL: 10 mL Specimen: Appendix to pathology Drains: None Complications: None Indication: The patient is a 25-year-old female who reported to the emergency department with abdominal pain. The evaluation is consistent with acute appendicitis. The patient was offered surgical treatment with a laparoscopic appendectomy. The risks of surgery were discussed which include bleeding, infection, visceral injury, pain, anesthetic risk, potential need for additional surgery or procedure. The patient understands and would like to proceed. Justifications for Admission Justifications for Admission Other Justification History of Present Illness History of Present Illness History of Present Illness History of Present Illness generalized abdominal pain started at 8pm, settled and seems worse at RLQ, aggravated by movement, nausea, and chills. npo for surgery Past Medical History Cardiovascular: No pertinent hx Pulmonary: No pertinent hx Heme/Onc: No pertinent hx Hepatobiliary: No pertinent hx Psych: No pertinent hx Rheumatologic: No pertinent hx Infectious disease: No pertinent hx Renal/: No pertinent hx Past Surgical History Past Surgical History: Other (abdominal wall lipoma removal ) Family History Family History: High Cholestrol, Other (noncontributory to current illness ) Social History Smoke: No ALCOHOL: none Drugs: None Current Medications Current Medications Current Medications Morphine Sulfate (Morphine Sulfate) 2 mg PRN Q2HR PRN IV PAIN Last administered on 01/29/21at 07:02; Start 01/29/21 at 04:15 Ondansetron HCl (Zofran) 4 mg PRN Q6HRS PRN IVP NAUSEA/VOMITING; Start 01/29/21 at 04:15 Sodium Chloride 1,000 ml @ 100 mls/hr Q10H IV Last administered on 01/29/21at 04:23; Start 01/29/21 at 04:15 Fentanyl Citrate (Fentanyl 2ml Vial) 25 mcg PRN Q5MIN PRN IVP MILD PAIN 1-3; Start 01/29/21 at 08:45; Stop 01/30/21 at 08:44 Fentanyl Citrate (Fentanyl 2ml Vial) 50 mcg PRN Q5MIN PRN IVP MODERATE PAIN 4- 6; Start 01/29/21 at 08:45; Stop 01/30/21 at 08:44 Morphine Sulfate (Morphine Sulfate) 1 mg PRN Q10MIN PRN IVP SEVERE PAIN 7-10; Start 01/29/21 at 08:45; Stop 01/30/21 at 08:44 Ringer's Solution 1,000 ml @ 30 mls/hr Q24H IV ; Start 01/29/21 at 08:45; Stop 01/29/21 at 20:44 Hydromorphone HCl (Dilaudid) 0.5 mg PRN Q10MIN PRN IVP SEVERE PAIN 7-10, 2nd CHOICE; Start 01/29/21 at 08:45; Stop 01/30/21 at 08:44 Prochlorperazine Edisylate (Compazine) 5 mg PACU PRN PRN IVP NAUSEA, MRX1; Start 01/29/21 at 08:45; Stop 01/30/21 at 08:44 Lidocaine HCl (Lidocaine Pf 2% Vial) 5 ml STK-MED ONCE .ROUTE ; Start 01/29/21 at 08:57; Stop 01/29/21 at 08:57; Status DC Propofol (Diprivan) 200 mg STK-MED ONCE IV ; Start 01/29/21 at 08:57; Stop 01/29/21 at 08:57; Status DC Succinylcholine Chloride (Anectine) 200 mg STK-MED ONCE .ROUTE ; Start 01/29/21 at 08:57; Stop 01/29/21 at 08:57; Status DC Rocuronium [place] (Zemuron) 50 mg STK-MED ONCE .ROUTE ; Start 01/29/21 at 08:57; Stop 01/29/21 at 08:57; Status DC Midazolam HCl (Versed) 2 mg STK-MED ONCE .ROUTE ; Start 01/29/21 at 08:57; Stop 01/29/21 at 08:57; Status DC Fentanyl Citrate (Fentanyl 5ml Vial) 250 mcg STK-MED ONCE .ROUTE ; Start 01/29/21 at 08:57; Stop 01/29/21 at 08:58; Status DC Allergies Allergies: Coded Allergies: latex (Verified Allergy, Unknown, 01/29/21) ROS General: No: Chills, Night Sweats, Fatigue, Malaise, Appetite, Other PSYCHOLOGICAL ROS: No: Anxiety, Behavioral Disorder, Concentration difficultie, Decreased libido, Depression, Disorientation, Hallucinations, Hostility, Irritablity, Memory difficulties, Mood Swings, Obsessive thoughts, Physical abuse, Sexual abuse, Sleep disturbances, Suicidal ideation, Other Eyes: No Blurry vision, No Decreased vision, No Double vision, No Dry eyes, No Excessive tearing, No Eye Pain, No Itchy Eyes, No Loss of vision, No Photophobia, No Scotomata, No Uses contacts, No Uses glasses, No Other HEENT: No: Heacaches, Visual Changes, Hearing change, Nasal congestion, Nasal discharge, Oral lesions, Sinus pain, Sore Throat, Epistaxis, Sneezing, Snoring, Tinnitus, Vertigo, Vocal changes, Other ALLERGY AND IMMUNOLOGY: No: Hives, Insect Bite Sensitivity, Itchy/Watery Eyes, Nasal Congestion, Post Nasal Drip, Seasonal Allergies, Other Hematological and Lymphatic: No: Bleeding Problems, Blood Clots, Blood Transfusions, Brusing, Night Sweats, Pallor, Swollen Lymph Nodes, Other ENDOCRINE: No: Breast Changes, Galactorrhea, Hair Pattern Changes, Hot Flashes, Malaise/lethargy, Mood Swings, Palpitations, Polydipsia/polyuria, Skin Changes, Temperature Intolerance, Unexpected Weight Changes, Other Breast: No New/Changing Breast Lumps, No Nipple changes, No Nipple discharge, No Other Respiratory: No: Cough, Hemoptysis, Orthopnea, Pleuritic Pain, Shortness of breath, SOB with excertion, Sputum Changes, Stridor, Tachypnea, Wheezing, Other Cardiovascular: No Chest Pain, No Palpitations, No Orthopnea, No Paroxysmal Noc. Dyspnea, No Edema, No Lt Headedness, No Other Gastrointestinal: Yes Abdominal Pain; No Nausea, No Vomiting, No Diarrhea, No Constipation, No Melena, No Hematochezia, No Other Genitourinary: No Dysuria, No Frequency, No Incontinence, No Hematuria, No Retention, No Discharge, No Urgency, No Pain, No Flank Pain, No Other, No , No , No , No , No , No , No Musculoskeletal: No Gait Disturbance, No Joint Pain, No Joint Stiffness, No Joint Swelling, No Muscle Pain, No Muscular Weakness, No Pain In:, No Swelling In:, No Other Neurological: No Behavorial Changes, No Bowel/Bladder ControlChng, No Confusion, No Dizziness, No Gait Disturbance, No Headaches, No Impaired Coord/balance, No Memory Loss, No Numbness/Tingling, No Seizures, No Speech Problems, No Tremors, No Visual Changes, No Weakness, No Other Skin: No Dry Skin, No Eczema, No Hair Changes, No Lumps, No Mole Changes, No Mottling, No Nail Changes, No Pruritus, No Rash, No Skin Lesion Changes, No Other, No Acne s/p appy diet as tolerated, can dc home 3-24 Brief Hospital Course Ms. Voss is a 25 old [sex] who presented with [ ACUTE APPENDICITIS] CONDITION AT DISCHARGE: Improved Discharge Medications Current Medications Morphine Sulfate (Morphine Sulfate) 2 mg PRN Q2HR PRN IV PAIN Last administered on 01/29/21at 13:58; Start 01/29/21 at 04:15 Ondansetron HCl (Zofran) 4 mg PRN Q6HRS PRN IVP NAUSEA/VOMITING; Start 01/29/21 at 04:15; Stop 01/29/21 at 14:25; Status DC Sodium Chloride 1,000 ml @ 100 mls/hr Q10H IV Last administered on 01/30/21at 02:56; Start 01/29/21 at 04:15 Fentanyl Citrate (Fentanyl 2ml Vial) 25 mcg PRN Q5MIN PRN IVP MILD PAIN 1-3; Start 01/29/21 at 08:45; Stop 01/30/21 at 08:44; Status DC Fentanyl Citrate (Fentanyl 2ml Vial) 50 mcg PRN Q5MIN PRN IVP MODERATE PAIN 4-6 Last administered on 01/29/21at 13:01; Start 01/29/21 at 08:45; Stop 01/30/21 at 08:44; Status DC Morphine Sulfate (Morphine Sulfate) 1 mg PRN Q10MIN PRN IVP SEVERE PAIN 7-10; Start 01/29/21 at 08:45; Stop 01/30/21 at 08:44; Status DC Ringer's Solution 1,000 ml @ 30 mls/hr Q24H IV ; Start 01/29/21 at 08:45; Stop 01/29/21 at 20:44; Status DC Hydromorphone HCl (Dilaudid) 0.5 mg PRN Q10MIN PRN IVP SEVERE PAIN 7-10, 2nd CHOICE; Start 01/29/21 at 08:45; Stop 01/30/21 at 08:44; Status DC Prochlorperazine Edisylate (Compazine) 5 mg PACU PRN PRN IVP NAUSEA, MRX1 Last administered on 01/29/21at 12:04; Start 01/29/21 at 08:45; Stop 01/30/21 at 08:44; Status DC Lidocaine HCl (Lidocaine Pf 2% Vial) 5 ml STK-MED ONCE .ROUTE ; Start 01/29/21 at 08:57; Stop 01/29/21 at 08:57; Status DC Propofol (Diprivan) 200 mg STK-MED ONCE IV ; Start 01/29/21 at 08:57; Stop 01/29/21 at 08:57; Status DC Succinylcholine Chloride (Anectine) 200 mg STK-MED ONCE .ROUTE ; Start 01/29/21 at 08:57; Stop 01/29/21 at 08:57; Status DC Rocuronium [place] (Zemuron) 50 mg STK-MED ONCE .ROUTE ; Start 01/29/21 at 08:57; Stop 01/29/21 at 08:57; Status DC Midazolam HCl (Versed) 2 mg STK-MED ONCE .ROUTE ; Start 01/29/21 at 08:57; Stop 01/29/21 at 08:57; Status DC Fentanyl Citrate (Fentanyl 5ml Vial) 250 mcg STK-MED ONCE .ROUTE ; Start 01/29/21 at 08:57; Stop 01/29/21 at 08:58; Status DC Bupivacaine HCl/ Epinephrine Bitart (Sensorcain-Epi 0.5%-1:[id number] Mpf) 30 ml STK-MED ONCE .ROUTE Last administered on 01/29/21at 10:50; Start 01/29/21 at 10:19; Stop 01/29/21 at 10:20; Status DC Phenylephrine HCl (PHENYLEPHRINE in 0.9% NACL PF) 1 mg STK-MED ONCE IV ; Start 01/29/21 at 10:43; Stop 01/29/21 at 10:43; Status DC Sevoflurane (Ultane) 60 ml STK-MED ONCE IH ; Start 01/29/21 at 10:46; Stop 01/29/21 at 10:46; Status DC Ketorolac Tromethamine (Toradol 30mg Vial) 30 mg STK-MED ONCE .ROUTE ; Start 01/29/21 at 10:48; Stop 01/29/21 at 10:48; Status DC Ondansetron HCl (Zofran) 4 mg STK-MED ONCE .ROUTE ; Start 01/29/21 at 10:48; Stop 01/29/21 at 10:48; Status DC Dexamethasone Sodium Phosphate (Decadron) 4 mg STK-MED ONCE .ROUTE ; Start 01/29/21 at 10:48; Stop 01/29/21 at 10:48; Status DC Neostigmine [place] (Neostigmine Methylsulfate) 5 mg STK-MED ONCE .ROUTE ; Start 01/29/21 at 10:53; Stop 01/29/21 at 10:53; Status DC Glycopyrrolate (Robinul) 1 mg STK-MED ONCE .ROUTE ; Start 01/29/21 at 10:53; Stop 01/29/21 at 10:54; Status DC Fentanyl Citrate (Fentanyl 2ml Vial) 100 mcg STK-MED ONCE .ROUTE ; Start 01/29/21 at 11:45; Stop 01/29/21 at 11:45; Status DC Prochlorperazine Edisylate (Compazine) 10 mg STK-MED ONCE .ROUTE ; Start 01/29/21 at 11:45; Stop 01/29/21 at 11:45; Status DC Oxycodone/ Acetaminophen (Percocet 5/325) 1 tab PRN Q4HRS PRN PO MODERATE PAIN Last administered on 01/30/21at 07:04; Start 01/29/21 at 12:00 Oxycodone/ Acetaminophen (Percocet 5/325) 2 tab PRN Q4HRS PRN PO SEVERE PAIN; Start 01/29/21 at 12:00 Sodium Chloride (Normal Saline Flush) 3 ml QSHIFT PRN IV AFTER MEDS AND BLOOD DRAWS; Start 01/29/21 at 13:45 Sodium Chloride 1,000 ml @ 100 mls/hr Q10H IV Last administered on 01/29/21at 23:57; Start 01/29/21 at 13:45 Ondansetron HCl (Zofran) 4 mg PRN Q4HRS PRN IV NAUSEA/VOMITING Last administered on 01/29/21at 18:45; Start 01/29/21 at 13:45 Zolpidem Tartrate (Ambien) 5 mg PRN QHS PRN PO INSOMNIA; Start 01/29/21 at 13:45 Acetaminophen (Tylenol) 650 mg PRN Q4HRS PRN PO TEMP OVER 100.4F OR MILD PAIN; Start 01/29/21 at 13:45 Sodium Monofluorophosphate (Fleet Adult) 133 ml PRN DAILY PRN SD CONSTIPATION; Start 01/29/21 at 13:45 Docusate Sodium (Colace) 100 mg PRN BID PRN PO HARD STOOLS; Start 01/29/21 at 13:45 Albuterol Sulfate (Ventolin Neb Soln) 2.5 mg PRN Q4HRS PRN NEB SHORTNESS OF BREATH; Start 01/29/21 at 13:45 Guaifenesin (Robitussin) 200 mg PRN Q4HRS PRN PO COUGH; Start 01/29/21 at 13:45 Enoxaparin Sodium (Lovenox 40mg Syringe) 40 mg Q24H SQ ; Start 01/29/21 at 21:00; Stop 01/30/21 at 00:45; Status DC Enoxaparin Sodium (Lovenox 40mg Syringe) 40 mg Q24H SQ Last administered on 01/30/21at 08:04; Start 01/30/21 at 09:00 Active Scripts Active Percocet 5-325 Mg Tablet (Oxycodone/Acetaminophen) 1 Each Tablet 1 Tab PO PRN Q4HRS PRN Vital Signs Vital Signs Date Time Temp Pulse Resp B/P (MAP) Pulse Ox O2 Delivery O2 Flow Rate FiO2 01/30/21 11:00 98.5 109 20 106/60 (75) 100 Room Air 98.5 01/30/21 07:04 10.0 Labs Laboratory Tests Test 01/29/21 04:45 01/29/21 14:00 01/30/21 05:20 Coronavirus (PCR) Not detected (Not Detected) SARS-CoV-2 Antigen (Rapid) Negative (NEGATIVE) Sodium Level 139 mmol/L (136-145) Potassium Level 3.6 mmol/L (3.5-5.1) Chloride Level 107 mmol/L (98-107) Carbon Dioxide Level 23 mmol/L (21-32) Anion Gap 9 (6-14) Blood Urea Nitrogen 5 mg/dL (7-20) Creatinine 0.5 mg/dL (0.6-1.0) Estimated GFR (Cockcroft-Gault) 152.9 Glucose Level 94 mg/dL (70-99) Calcium Level 7.2 mg/dL (8.5-10.1) White Blood Count 6.7 x10^3/uL (4.0-11.0) Red Blood Count 4.46 x10^6/uL (3.50-5.40) Hemoglobin 12.0 g/dL (12.0-15.5) Hematocrit 36.6 % (36.0-47.0) Mean Corpuscular Volume 82 fL (79-100) Mean Corpuscular Hemoglobin 27 pg (25-35) Mean Corpuscular Hemoglobin Concent 33 g/dL (31-37) Red Cell Distribution Width 14.3 % (11.5-14.5) Platelet Count 211 x10^3/uL (140-400) Neutrophils (%) (Auto) 71 % (31-73) Lymphocytes (%) (Auto) 23 % (24-48) Monocytes (%) (Auto) 7 % (0-9) Eosinophils (%) (Auto) 0 % (0-3) Basophils (%) (Auto) 0 % (0-3) Neutrophils # (Auto) 4.7 x10^3/uL (1.8-7.7) Lymphocytes # (Auto) 1.5 x10^3/uL (1.0-4.8) Monocytes # (Auto) 0.4 x10^3/uL (0.0-1.1) Eosinophils # (Auto) 0.0 x10^3/uL (0.0-0.7) Basophils # (Auto) 0.0 x10^3/uL (0.0-0.2) Laboratory Tests Test 01/29/21 14:00 01/30/21 05:20 Sodium Level 139 mmol/L (136-145) Potassium Level 3.6 mmol/L (3.5-5.1) Chloride Level 107 mmol/L (98-107) Carbon Dioxide Level 23 mmol/L (21-32) Anion Gap 9 (6-14) Blood Urea Nitrogen 5 mg/dL (7-20) Creatinine 0.5 mg/dL (0.6-1.0) Estimated GFR (Cockcroft-Gault) 152.9 Glucose Level 94 mg/dL (70-99) Calcium Level 7.2 mg/dL (8.5-10.1) White Blood Count 6.7 x10^3/uL (4.0-11.0) Red Blood Count 4.46 x10^6/uL (3.50-5.40) Hemoglobin 12.0 g/dL (12.0-15.5) Hematocrit 36.6 % (36.0-47.0) Mean Corpuscular Volume 82 fL (79-100) Mean Corpuscular Hemoglobin 27 pg (25-35) Mean Corpuscular Hemoglobin Concent 33 g/dL (31-37) Red Cell Distribution Width 14.3 % (11.5-14.5) Platelet Count 211 x10^3/uL (140-400) Neutrophils (%) (Auto) 71 % (31-73) Lymphocytes (%) (Auto) 23 % (24-48) Monocytes (%) (Auto) 7 % (0-9) Eosinophils (%) (Auto) 0 % (0-3) Basophils (%) (Auto) 0 % (0-3) Neutrophils # (Auto) 4.7 x10^3/uL (1.8-7.7) Lymphocytes # (Auto) 1.5 x10^3/uL (1.0-4.8) Monocytes # (Auto) 0.4 x10^3/uL (0.0-1.1) Eosinophils # (Auto) 0.0 x10^3/uL (0.0-0.7) Basophils # (Auto) 0.0 x10^3/uL (0.0-0.2) Allergies Allergies Coded Allergies Type Severity Reaction Last Updated Verified latex Allergy Unknown 01/29/21 Yes Disposition/Orders: D/C to Home Justicifation of Admission Dx: Justifications for Admission: Justification of Admission Dx: Yes LOUISE COX MD Jan 30, 2021 12:07
[2021-01-30] MEDS ORDERED: ONDA4TAB7 PO (12:10)
--- NOTE | 2021-01-30 12:11 | DISCH ---
DISCHARGE INSTRUCTIONS Condition on Discharge Condition on Discharge: Stable Activity After Discharge Activity Instructions for Disc: Activity as tolerated Bathing Instructions: Shower-keep dressing dry Lifting Instructions after Dis: No heavy lifting, No pulling or pushing Driving Instructions after Dis: Do not drive today Diet after Discharge Diet after Discharge: Regular Wound Incision Care Wound/Incision Care: Do not change dressing, May get incision wet Checks after Discharge Checks after discharge: Check blood press - daily Contacting the DR. after DC Call your doctor for: If your condition worsens Follow-Up Follow up with: SURGERY ONE WEEK DIRECTED Treatment/Equipment after DC Adaptive Equipment Issued: None LOUISE COX MD Jan 30, 2021 12:11
--- NOTE | 2021-01-31 14:09 | PATHOLOGY ---
[facility] Accession Number: [id number] . 01 Material submitted: . appendix - APPENDIX . 01 Clinical history: . APPENDICITIS LAPAROSCOPIC APPENDECTOMY . 02 Diagnosis: Appendix, laparoscopic appendectomy: - Acute appendicitis. (JPM:leesa; 01/31/2021) S 01/31/2021 0927 Local . 02 Comment: There is no evidence of rupture. (JPM:leesa; 01/31/2021) . 02 Electronically signed: . Austin Mcelroy MD, Pathologist NPI- [id number] . 01 Gross description: . Fixative: Formalin Labeled: Appendix Appendix length: 6.8 cm Appendix diameter: Up to 1.2 cm Mesoappendix: 1.9 cm Proximal margin: Stapled; the patric are removed and the new margin is inked black Serosa: Pale burton, glistening Cut surface: Patent to dilated lumen filled with fecal material admixed with a slight amount of exudate Luminal diameter: Up to 0.5 cm Lesions/abnormalities: None identified . Proximal margin and bisected tip in cassette A1. Additional inbound call center representative cross-sections in cassette A2. (CAA; 01/30/2021) QAC/QAC 01/30/2021 1325 Local . 02 Pathologist provided ICD-10: K35.80 . 02 CPT . 606437 Specimen Comment: A courtesy copy of this report has been sent to [phone], [phone] Specimen Comment: [id number] Specimen Comment: Report sent to / DR GARCIA Performed at: [address], [place], [place] [id number] MD Ernesto Sheppard MD Phone: [phone] Performed at: [address] [facility] [address] [place], [place] [id number] MD Austin Mcelroy MD Phone: [phone]
== END 2021-01-30 13:40 | disposition home or self-care (01) | DRG 343 ==
LOC: 4 NORTH 03:58
PROVIDERS: ADMIT Internal Medicine; ATTEND Internal Medicine
PROC: 0DTJ4ZZ Resection of Appendix, Percutaneous Endoscopic Approach (ICD-10-PCS; principal; 2021-01-29 09:30)
DX: K35.80 Unspecified acute appendicitis (principal); K66.0 Peritoneal adhesions (postprocedural) (postinfection); Z20.822 Contact with and (suspected) exposure to COVID-19; Z91.040 Latex allergy status; Z83.49 Family history of other endocrine, nutritional and metabolic diseases
CPT/HCPCS: 36415; 80048; 85025; 87426; 88304; 94640; A4315; A4344; A4364; A4452; A4930; A6219; J0330; J0780; J1100; J1650; J1885; J2250; J2270; J2370; J2405; J2704; J2710; J3010; J3490; J7030; U0003; G0378

== ENCOUNTER → 2021-11-15 | Outpatient (CLI) | payer BC, OTHER ==
[~2021-11-15] MED LIST: DOCU-148 PO; ONDA4TAB7 PO; OXYC1TAB15 PO
--- NOTE | 2021-11-15 13:13 | KCIC ---
MR LUMBAR SPINE WO -[id number], MR CERVICAL SPINE WO, MRI THORACIC SPINE WO 11/15/2021 9:25 AM INDICATION: Neurofibromatosis. Thoracic and low back pain. COMPARISON: None available. TECHNIQUE: Multiplanar, multisequence MR imaging of the cervical, thoracic and lumbar sinus performe d without gadolinium based contrast. FINDINGS: Cervical spine: Reversal the normal cervical lordosis. No significant spondylolisthesis. At C5-C6, C6-C7, C7-T1 and T 1-T2 there are bilateral T2 hyperintense lesions, most prominent on the left at C5-C6 suspicious for peripheral nerve sheath tumors. Evaluation limited without contrast demonstration. Vertebral bodies d emonstrate normal signal intensity on all sequences. No acute fracture is identified; however, if tr auma is suspected, a CT scan would be a more sensitive examination for fractures. The craniocervical junction is normal. The visualized portions of the skull base and the posterior fossa are normal. The spinal cord demonstrates normal signal intensity on all sequences. Intervertebral disks have nor mal height and signal intensity. There are no annular fissures identified. No soft tissue abnormalit y is identified. Normal signal voids are present in the vertebral arteries. C2-C3: The disk is normal in configuration. There is no facet arthropathy. There is no uncovertebral joint disease. There is no neuroforaminal stenosis. There is no spinal canal stenosis. C3-C4: The disk is normal in configuration. There is no facet arthropathy. There is no uncovertebral joint disease. There is no neuroforaminal stenosis. There is no spinal canal stenosis. C4-C5: The disk is normal in configuration. There is no facet arthropathy. There is no uncovertebral joint disease. There is no neuroforaminal stenosis. There is no spinal canal stenosis. C5-C6: The disk is normal in configuration. There is no facet arthropathy. There is no uncovertebral joint disease. There is no neuroforaminal stenosis. There is no spinal canal stenosis. C6-C7: The disk is normal in configuration. There is no facet arthropathy. There is no uncovertebral joint disease. There is no neuroforaminal stenosis. There is no spinal canal stenosis. C7-T1: The disk is normal in configuration. There is no facet arthropathy. There is no uncovertebral joint disease. There is no neuroforaminal stenosis. There is no spinal canal stenosis. Thoracic spine: Alignment of the thoracic spine is normal. Vertebral body heights are maintained. Marrow signal inten sity is normal in all sequences. Disc heights are maintained. There is minimal disc desiccation ident ified within the lower thoracic spine. There is a subcutaneous nodule along the mid posterior thoraci c spine measuring 2.5 cm. Lungs are clear. Thoracic aorta is normal in caliber. No disc herniation, n euroforaminal or spinal canal stenosis. Lumbar spine: The alignment of the lumbar spine is normal. V ertebral bodies demonstrate normal signal intensity on all sequences. There are no compression fract ures. The conus medullaris terminates at the level of L1. The distal spinal cord signal intensity is normal. Intervertebral disks have normal height and signal intensity. There are no annular fissures identified. Limited views of the abdomen and pelvis show no soft tissue abnormality. The aorta is normal. L1-L2: The disc is normal in configuration. There is no facet arthropathy. There is no neuroforaminal stenosis. There is no spinal canal stenosis. L2-L3: The disc is normal in configuration. There is no facet arthropathy. There is no neuroforaminal stenosis. There is no spinal canal stenosis. L3-L4: The disc is normal in configuration. There is no facet arthropathy. There is no neuroforaminal stenosis. There is no spinal canal stenosis. L4-L5: The disc is normal in configuration. There is no facet arthropathy. There is no neuroforaminal stenosis. There is no spinal canal stenosis. L5-S1: The disc is normal in configuration. There is no facet arthropathy. There is no neuroforaminal stenosis. There is no spinal canal stenosis. IMPRESSION: 1. No significant disc herniation, neuroforaminal or spinal canal stenosis. 2. T2 hyperintense lesion identified within the right erector spinae muscle measuring 2.8 x 1.1 x 1.1 cm. 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 Similar scattered findings identif ied within the erector spinae muscles bilaterally. 3. Within the cervical spine, there are T2 hyperintense areas within the neural foramen bilaterally, most prominent on the left at C5-C6 as may be seen with peripheral nerve sheath tumors. This could be further evaluated with contrast. Differential consideration would include perineural sheath divertic ulum. Electronically signed by: Angella Baig MD (11/15/2021 1:11 PM) [id number]
== END ==
LOC: KCIC MRI 09:16
PROVIDERS: ATTEND Nurse Practitioner Family
DX: G95.89 Other specified diseases of spinal cord (principal); R22.2 Localized swelling, mass and lump, trunk; Q85.00 Neurofibromatosis, unspecified; M54.6 Pain in thoracic spine; G89.29 Other chronic pain; M54.50 Low back pain, unspecified
CPT/HCPCS: 72141; 72146; 72148

== ENCOUNTER → 2022-01-13 | Outpatient (CLI) | payer OTHER | LOC: SPEC 09:16 | PROVIDERS: ATTEND Family Medicine | DX: Z01.419 Encounter for gynecological examination (general) (routine) without abnormal findings (principal) | CPT/HCPCS: 87623; 88175 ==